=== PATIENT | male | born 1945 | race Caucasian/White ===

== ENCOUNTER 2022-03-16 08:07 | Day surgery (SDC) | payer OTHER ==
[~2022-03-16] VITALS: Ht 190.5 cm; Wt 107.5 kg
[~2022-03-16 08:07] MED LIST: ALBUTEROL SULFATE 2.5 MG/0.5 ML INH NEB SOLN NEB ONE; ALLO100T PO; AMIO200T49 PO; ASPI81CH49 PO; ATOR80TA59 PO; CYAN100050 PO; DEEP SEA NASAL SPRAY; DIGO0.123 PO; DORZ2SOL4 OS; ELIQ5TAB PO; ERYTOIN8 OD; FURO80TA2 PO; LATA0.0015 OS; LIDOCAINE PRES-FREE 2% 10ML AMP NEB ONE; POTA-151 PO; VITA100093 PO; VITA500T11 PO
[2022-03-16 08:46] LABS: INR 1.11; PROTHROMBIN TIME 14.5 SECONDS (12.5-14.5)
[2022-03-16 08:47] LABS: PARTIAL THROMBOPLASTIN TIME 47.8 SECONDS (24.8-34.2)
[2022-03-16 09:00] LABS: COLLAGEN EPINEPHRINE 239 SECONDS (74-162)
[2022-03-16] MEDS ORDERED: ENOX100I3 SQ (09:04)
[2022-03-16] MEDS ORDERED: LR 1,000 ML IV SCH ×2 (09:30→12:15)
[2022-03-16 09:34] LABS: COLLAGEN ADP 92 SECONDS (56-103)
[2022-03-16] MEDS ORDERED: ROCURONIUM BROMIDE 50 MG/5 ML VIAL As Ordered ONE (09:35)
[2022-03-16] MEDS ORDERED: LIDOCAINE 2% 100MG/5ML SDV (FOR ANES.) As Ordered ONE (09:35)
[2022-03-16] MEDS ORDERED: propofoL 200 MG/20 ML VIAL As Ordered ONE (09:35)
[2022-03-16] MEDS ORDERED: MIDAZOLAM INJ 2MG/2ML VIAL (J2250 PER 1MG) As Ordered ONE (09:35)
[2022-03-16] MEDS ORDERED: fentaNYL 100 MCG/2 ML INJECTION As Ordered ONE (09:35)
[2022-03-16] MEDS ORDERED: EPINEPHrine INJ 1 MG/ML 1ML AMP As Ordered ONE (10:49)
[2022-03-16] MEDS ORDERED: CETACAINE SPRAY 5GM As Ordered ONE (10:49)
[2022-03-16] MEDS ORDERED: EPINEPHrine 1MG/10ML SYRINGE 1.5IN As Ordered ONE (10:51)
[2022-03-16] MEDS ORDERED: PHENYLephrine 500MCG 5ML (100MCG/ML) SYRINGE As Ordered ONE (11:37)
[2022-03-16] MEDS ORDERED: ONDANSETRON 4MG 2ML VIAL As Ordered ONE (11:52)
[2022-03-16] MEDS ORDERED: KETOROLAC 60MG 2ML VIAL As Ordered ONE (11:52)
[2022-03-16] MEDS ORDERED: SUGAMMADEX SODIUM 500 MG/5 ML VIAL (BRIDION) As Ordered ONE (11:52)
[2022-03-16] MEDS ORDERED: MORPHINE 2 MG/ML 1ML VIAL IV PRN (12:15)
[2022-03-16] MEDS ORDERED: fentaNYL 100 MCG/2 ML INJECTION IV PRN (12:15)
[2022-03-16] MEDS ORDERED: ONDANSETRON 4MG 2ML VIAL IV PRN (12:15)
[2022-03-16] MEDS ORDERED: oxyCODONE 5MG TAB PO PRN (12:15)
[2022-03-16 12:55] VITALS: BP 140/91
== END 2022-03-16 13:20 | disposition home or self-care (01) ==
LOC: M SDC 08:07
PROVIDERS: ATTEND Internal Medicine Pulmonary Disease
DX: J43.9 Emphysema, unspecified (principal); J84.9 Interstitial pulmonary disease, unspecified; G47.33 Obstructive sleep apnea (adult) (pediatric); I12.9 Hypertensive chronic kidney disease with stage 1 through stage 4 chronic kidney disease, or unspecified chronic kidney disease; N18.9 Chronic kidney disease, unspecified; I25.10 Atherosclerotic heart disease of native coronary artery without angina pectoris; Z98.61 Coronary angioplasty status; Z79.01 Long term (current) use of anticoagulants; Z95.810 Presence of automatic (implantable) cardiac defibrillator; Z79.899 Other long term (current) drug therapy; Z87.891 Personal history of nicotine dependence; I48.91 Unspecified atrial fibrillation; E11.9 Type 2 diabetes mellitus without complications; Z92.3 Personal history of irradiation; Z88.8 Allergy status to other drugs, medicaments and biological substances; C34.90 Malignant neoplasm of unspecified part of unspecified bronchus or lung
CPT/HCPCS: 31624; 31627; 31654; 36415; 71045; 76000; 85576; 85610; 85730; 87070; 87102; 87116; 87186; 87205; 87206; 88108; 88173; 88305; 88313; J0171; J1100; J1885; J2250; J2370; J2405; J3010; S2900

== ENCOUNTER → 2025-04-23 | Outpatient (CLI) | payer MEDICARE, OTHER ==
[~2025-04-23] MED LIST changes: +ACETAMINOPHEN 325 MG TAB PO PRN; -ALBUTEROL SULFATE 2.5 MG/0.5 ML INH NEB SOLN NEB ONE; -AMIO200T49 PO; +AMIO200T54 PO; +CYAN-1 PO; -CYAN100050 PO; +ENOX100I3 SQ; -LIDOCAINE PRES-FREE 2% 10ML AMP NEB ONE
[2025-04-23 11:45] VITALS: TEMP 98.5
[2025-04-23 13:05] LABS: PH BODY FLUID 7.716 UNITS (NOT ESTABLISHED); SOURCE, BODY FLUID pH PLEURAL
[2025-04-23 13:09] LABS: APPEARANCE, BODY FLUID HAZY (CLEAR); PLEURAL FL COLOR YELLOW (COLORLESS); SOURCE, BODY FLUID PLEURAL
[2025-04-23 13:32] VITALS: BP 128/80; O2SAT 100
== END ==
LOC: M IRPRO 11:32
PROVIDERS: ATTEND Internal Medicine Pulmonary Disease
DX: J90 Pleural effusion, not elsewhere classified (principal)